=== PATIENT | female | born 1945 | race Two or more races ===

== ENCOUNTER 2017-08-28 08:43 | Emergency (ER) | payer OTHER ==
[~2017-08-28] VITALS: Ht 160 cm; Wt 74.4 kg
[~2017-08-28 08:43] MED LIST: LISINOPRIL40 MG; NORVASC5 MG; PREVACID30 MG; ULTRAM50 MG; ZOCOR20 MG
[2017-08-28] MEDS ORDERED: ZITHROMAX500 MG PO (10:39)
[2017-08-28] MEDS ORDERED: IBUPROFEN600 MG PO (10:39)
[2017-08-28] MEDS ORDERED: FLONASE ALLERG9.9 ML NASAL (10:39)
[2017-08-28] MEDS ORDERED: MUCINEX DM ER1 EAC1 PO (10:39)
== END 2017-08-28 11:25 | disposition home or self-care (01) ==
LOC: ER 08:43
DX: J06.9 Acute upper respiratory infection, unspecified (principal); J01.00 Acute maxillary sinusitis, unspecified

== ENCOUNTER 2024-03-29 14:28 | Emergency (ER) | payer OTHER ==
[~2024-03-29] VITALS: Ht 160 cm; Wt 66.2 kg
[~2024-03-29 14:28] MED LIST changes: +FLONASE ALLERG9.9 ML NASAL; +IBUPROFEN600 MG PO; +MUCINEX DM ER1 EAC1 PO; +ZITHROMAX500 MG PO
[2024-03-29] MEDS ORDERED: KETOROLAC TROMETHAMINE 30 MG VIAL IM STA (17:23)
== END 2024-03-29 19:39 | disposition home or self-care (01) ==
LOC: ER 14:29
DX: M79.605 Pain in left leg (principal)